=== PATIENT | female | born 1950 | race Asian ===

== ENCOUNTER → 2017-06-07 | Outpatient (CLI) | payer OTHER ==
[~2017-06-07] MED LIST: ACCUNEB SO1.25 MG/1 INH; ACCUPRIL40 MG PO; AMLODIPINE BESYL5 M1 PO; APIDRA; ASPIRIN325 PO; ATORVASTATIN CA40 MG PO; BENADRYL25 MG PO; BENZONATATE200 MG PO; CARVEDILOL12.5 MG PO; COREG PO; EPIPEN 2-P0.3 MG/0.3 IM; FUROSEMIDE 20 M20 M1 PO; FUROSEMIDE 40 M40 M1 PO; GLUCOPHAGE1000 MG PO; HYDROCHLOROTHIA25 M1 PO; HYDROCHLOROTHIA25 M2 PO; IMDUR 60 MG TAB60 M1 PO; LANTUS SC; LEVAQUIN 750 M750 MG PO; MUCINEX600 MG PO; NORVASC 5 MG TAB5 MG PO; NOVOLOG100 UNIT/1 SUBQ; OMEGA-31000 M1 PO; PEPCID40 MG PO; PLAVIX 75 MG TA75 MG PO; PRAVACHOL40 MG PO; PREDNISONE 10 M10 MG PO; PREDNISONE10 MG PO; PREDNISONE50 MG PO; RANEXA 500 MG500 M1 PO; RANEXA1000 MG PO; TOPROL XL100 MG PO
--- NOTE | 2017-06-07 14:23 | 2DMMODE ---
[place] [address] 2 D/M-MODE ECHOCARDIOGRAM Name: PRINCESS POOLE Room: [facility]#: [id number] Admission: 06/07/17 Attend Phys: Herbert Bourne, Discharge: Date of : 48 Date of Service: 06/07/17 1423 Report #: [id number] THIS REPORT FOR: //name// APPROVED REPORT Study performed: 06/07/2017 10:30:07 EXAM: Comprehensive 2D, Doppler, and color-flow Echocardiogram Patient Location: Out-Patient Status: routine BSA: 1.96 HR: 70 bpm BP: 140/70 mmHg Other Information Study Quality: Fair Indications Cardiomyopathy 2D Dimensions LVEF(%): 38.02 (>50%) IVSd: 14.91 (7-11mm) LVOT Diam: 20.06 (18-24mm) LVDd: 43.79 mm PWd: 9.83 (7-11mm) Ascending Ao: 27.17 (22-36mm) LVDs: 35.81 (25-40mm) Aortic Root: 22.99 mm Puri's LVEF: 38.02 % Volumes Left Atrial Volume (Systole) LA ESV Index: 22.00 mL/m2 Aortic Valve AoV Peak Beka.: 2.33 m/s AO Peak Gr.: 21.74 mmHg LVOT Max P.36 mmHg AO Mean Gr.: 12.42 mmHg LVOT Mean P.62 mmHg LVOT Max V: 0.92 m/s AO V2 VTI: 58.91 cm LVOT Mean V: 0.59 m/s JASON (VTI): 1.29 cm2 LVOT V1 VTI: 24.01 cm Mitral Valve E/A Ratio: 1.24 MV Decel. Time: 215.48 [place] [address] 2 D/M-MODE ECHOCARDIOGRAM Name: PRINCESS POOLE Room: [facility]#: [id number] Admission: 06/07/17 Attend Phys: Herbert Bourne, Discharge: Date of : 48 Date of Service: 06/07/17 1423 Report #: [id number] MV E Max Beka.: 1.25 m/s MV PHT: 62.49 ms MVA (PHT): 3.52 cm2 TDI E/Lateral E': 11.36 E/Medial E': 15.63 Medial E' Beka.: 0.08 m/s Lateral E' Beka.: 0.11 m/s Pulmonary Valve PV Peak Beka.: 0.97 m/s PV Peak Gr.: 3.78 mmHg Tricuspid Valve TR Peak Gr.: 27.62 mmHg RVSP: 32.62 mmHg Left Ventricle The left ventricle is normal size. moderate hypokinesis noted of distal septum and apex There is normal left ventricular wall thickness. Left ventricular systolic function is moderately decreased. LVEF is 35-40%. Right Ventricle The right ventricle is normal size. The right ventricular systolic function is normal. Atria The left atrium size is normal. The right atrium size is normal. Aortic Valve Aortic valve leaflets are mildly thickened. The aortic valve is not well visualized. Trace aortic regurgitation. Mild aortic stenosis. Mitral Valve The mitral valve is normal in structure. Mild to moderate mitral regurgitation. No evidence of mitral valve stenosis. Tricuspid Valve The tricuspid valve is normal in structure. Mild tricuspid regurgitation. The RVSP is __33 mmHg. Pulmonic Valve Pulmonic valve is not well visualized. There is no pulmonic [place] [address] 2 D/M-MODE ECHOCARDIOGRAM Name: PRINCESS POOLE Room: [facility]#: [id number] Admission: 06/07/17 Attend Phys: Herbert Bourne, Discharge: Date of : 48 Date of Service: 06/07/17 1423 Report #: [id number] Great Vessels The aortic root is normal in size. IVC is normal in size and collapses with >50% inspiration Pericardium There is no pericardial effusion. <Conclusion> LVEF is 35-40%. moderate hypokinesis noted of distal septum and apex Mild aortic stenosis. Mild to moderate mitral regurgitation. <ELECTRONICALLY SIGNED> By: Blane Ceja MD, FACC 06/07/17 1423 22 142 Blane Ceja MD, FACC /INF
== END ==
LOC: M.CRD 10:00
DX: I08.1 Rheumatic disorders of both mitral and tricuspid valves (principal); I25.5 Ischemic cardiomyopathy

== ENCOUNTER → 2017-12-08 | Outpatient (CLI) | payer OTHER ==
[2017-12-08 06:57] LABS: POTASSIUM 4.1 mmol/L (3.5-5.1)
== END ==
LOC: M.LAB 03:28
PROVIDERS: Anesthesiology
DX: Z01.812 Encounter for preprocedural laboratory examination (principal); E11.9 Type 2 diabetes mellitus without complications; I11.0 Hypertensive heart disease with heart failure; I50.9 Heart failure, unspecified; Z95.5 Presence of coronary angioplasty implant and graft

== ENCOUNTER → 2018-06-15 | Outpatient (CLI) | payer OTHER ==
--- NOTE | 2018-06-15 12:00 | 2DMMODE ---
[place] [address] 2 D/M-MODE ECHOCARDIOGRAM Name: PRINCESS POOLE Room: [facility]#: [id number] Admission: 06/15/18 Attend Phys: Herbert Bourne, Discharge: Date of : 48 Date of Service: 06/15/18 [facility] Report #: [id number] THIS REPORT FOR: //name// APPROVED REPORT Study performed: 06/15/2018 08:44:52 EXAM: Comprehensive 2D, Doppler, and color-flow Echocardiogram Patient Location: Out-Patient BSA: 1.96 HR: 75 bpm BP: 140/70 mmHg Other Information Study Quality: Good Indications Congestive Heart Failure Dyspnea 2D Dimensions IVSd: 12.22 (7-11mm) LVOT Diam: 20.16 (18-24mm) LVDd: 45.19 mm PWd: 8.22 (7-11mm) Ascending Ao: 25.37 (22-36mm) LVDs: 36.73 (25-40mm) Aortic Root: 20.24 mm Volumes Left Atrial Volume (Systole) LA ESV Index: 20.00 mL/m2 Aortic Valve AoV Peak Beka.: 2.12 m/s AO Peak Gr.: 17.94 mmHg LVOT Max P.04 mmHg AO Mean Gr.: 11.24 mmHg LVOT Mean P.69 mmHg LVOT Max V: 1.12 m/s AO V2 VTI: 54.28 cm LVOT Mean V: 0.76 m/s JASON (VTI): 1.74 cm2 LVOT V1 VTI: 29.53 cm Mitral Valve E/A Ratio: 0.93 MV Decel. Time: 261.06 ms MV E Max Beka.: 1.02 m/s MV PHT: 75[place]71 [place] [address] 2 D/M-MODE ECHOCARDIOGRAM Name: PRINCESS POOLE Room: [facility]#: [id number] Admission: 06/15/18 Attend Phys: Herbert Bourne, Discharge: Date of : 48 Date of Service: 06/15/18 [facility] Report #: [id number] MVA (PHT): 2.91 cm2 TDI E/Lateral E': 10.20 E/Medial E': 12.75 Medial E' Beka.: 0.08 m/s Lateral E' Beka.: 0.10 m/s Pulmonary Valve PV Peak Beka.: 1.00 m/s PV Peak Gr.: 4.02 mmHg Tricuspid Valve RAP Estimate: 5.00 mmHg TR Peak Gr.: 23.43 mmHg RVSP: 28.43 mmHg PA Pressure: 28.43 mmHg Left Ventricle The left ventricle is normal size. severe apical hypokinesis noted There is normal left ventricular wall thickness. Left ventricular systolic function is mild to moderately decreased. LVEF is 35-40%. The left ventricular diastolic function is normal. Right Ventricle The right ventricle is normal size. The right ventricular systolic function is normal. Atria The left atrium size is normal. The right atrium size is normal. Aortic Valve Aortic valve leaflets are mildly thickened. No aortic regurgitation is present. Mild aortic stenosis. Mitral Valve Mild mitral annular calcification. Mild mitral regurgitation. No evidence of mitral valve stenosis. Tricuspid Valve The tricuspid valve is normal in structure. Mild tricuspid regurgitation. Pulmonic Valve Pulmonic valve is not well visualized. There is no pulmonic valvular regurgitation[place] [address] 2 D/M-MODE ECHOCARDIOGRAM Name: PRINCESS POOLE Room: [facility]#: [id number] Admission: 06/15/18 Attend Phys: Herbert Bourne, Discharge: Date of : 48 Date of Service: 06/15/18 [facility] Report #: [id number] The aortic root is normal in size. IVC is normal in size and collapses >50% with inspiration. Pericardium There is no pericardial effusion. <Conclusion> severe apical hypokinesis noted LVEF is 35-40%. Mild aortic stenosis. Mild mitral regurgitation. <ELECTRONICALLY SIGNED> By: Blane Ceja MD, FACC 06/15/18 1200 1200 99 Blane Ceja MD, FACC /INF
== END ==
LOC: M.CRD 06-07 09:00
DX: I08.1 Rheumatic disorders of both mitral and tricuspid valves (principal); I25.5 Ischemic cardiomyopathy

== ENCOUNTER → 2020-01-22 | Outpatient (CLI) | payer OTHER ==
--- NOTE | 2020-01-22 13:15 | 2DMMODE ---
[place] [address] 2 D/M-MODE ECHOCARDIOGRAM Name: PRINCESS POOLE Room: [facility]#: [id number] Admission: 01/22/20 Attend Phys: Blane Ceja MD Discharge: Date of : 48 Date of Service: 01/22/20 1315 Report #: [id number] THIS REPORT FOR: cc: Daisha Conde Maggie M. DO Blick, David R. MD [facility] ~ APPROVED REPORT Study performed: 01/22/2020 09:48:29 EXAM: Comprehensive 2D, Doppler, and color-flow Echocardiogram Patient Location: Out-Patient BSA: 1.96 HR: 65 bpm BP: 140/70 mmHg Other Information Study Quality: Fair Indications Cardiomyopathy 2D Dimensions IVSd: 11.88 (7-11mm) LVOT Diam: 19.90 (18-24mm) LVDd: 46.35 mm PWd: 10.87 (7-11mm) Ascending Ao: 29.90 (22-36mm) LVDs: 24.31 (25-40mm) Aortic Root: 30.75 mm Volumes Left Atrial Volume (Systole) LA ESV Index: 28.20 mL/m2 Aortic Valve AoV Peak Beka.: 2.24 m/s AO Peak Gr.: 20.07 mmHg LVOT Max P.26 mmHg AO Mean Gr.: 11.77 mmHg LVOT Mean P.31 mmHg LVOT Max V: 0.75 m/s AO V2 VTI: 59.60 cm LVOT Mean V: 0.54 m/s JASON (VTI): 1.17 cm2 LVOT V1 VTI: 22.50 cm Mitral Valve E/A Ratio: 0.91 [place] [address] 2 D/M-MODE ECHOCARDIOGRAM Name: PRINCESS POOLE [id number] Admission: 01/22/20 Attend Phys: Blane Ceja MD Discharge: Date of : 48 Date of Service: 01/22/20 1315 Report #: [id number] MV Decel. Time: 277.64 ms MV E Max Beka.: 0.92 m/s MV PHT: 80.52 ms MVA (PHT): 2.73 cm2 TDI E/Lateral E': 11.50 E/Medial E': 15.33 Medial E' Beka.: 0.06 m/s Lateral E' Beka.: 0.08 m/s Pulmonary Valve PV Peak Beka.: 0.99 m/s PV Peak Gr.: 3.89 mmHg Tricuspid Valve RAP Estimate: 5.00 mmHg TR Peak Gr.: 24.62 mmHg RVSP: 29.62 mmHg PA Pressure: 29.62 mmHg Left Ventricle The left ventricle is normal size. severe hypokinesis noted of the apex There is normal left ventricular wall thickness. Left ventricular systolic function is mildly decreased. LVEF is 45-50%. The left ventricular diastolic function is normal. Right Ventricle The right ventricle is normal size. The right ventricular systolic function is normal. Atria The left atrium size is normal. The right atrium size is normal. Aortic Valve Aortic valve is calcified. The aortic valve is not well visualized. No aortic regurgitation is present. Mild aortic stenosis. Mitral Valve The mitral valve is normal in structure. Mild mitral regurgitation. No evidence of mitral valve stenosis. Tricuspid Valve The tricuspid valve is normal in structure. Mild tricuspid regurgitation. Pulmonic Valve Pulmonic valve is not well visualized. There is [place] [address] 2 D/M-MODE ECHOCARDIOGRAM Name: PRINCESS POOLE Room: [facility]#: [id number] Admission: 01/22/20 Attend Phys: Blane Ceja MD Discharge: Date of : 48 Date of Service: 01/22/20 1315 Report #: [id number] regurgitation. Great Vessels The aortic root is normal in size. IVC is normal in size and collapses >50% with inspiration. Pericardium There is no pericardial effusion. <Conclusion> severe hypokinesis noted of the apex LVEF is 45-50%. Mild aortic stenosis. Mild mitral regurgitation. <ELECTRONICALLY SIGNED> By: Blane Ceja MD, FACC 01/22/201314 14 14 Blane Ceja MD, FACC /INF
== END ==
LOC: M.CRD 09:45
PROVIDERS: ATTEND Internal Medicine Cardiovascular Disease
DX: I08.3 Combined rheumatic disorders of mitral, aortic and tricuspid valves (principal)

== ENCOUNTER 2020-07-31 07:29 | Inpatient (IN) | payer OTHER ==
[~2020-07-31] VITALS: Ht 157.5 cm; Wt 101.6 kg
[2020-07-31] VITALS (41 sets, daily range): BP systolic 66–183; BP diastolic 32–84
[~2020-07-31 07:29] MED LIST changes: +COENZYME Q10100 M2 PO; +COZAAR 25 MG TA25 M1 PO; +LASIX 40 MG TAB40 MG PO; +NITROSTAT0.4 M1 SUBLING; +OMEGA-3 FISH1200 MG PO; +REFRESH PLUS1 EACH EA. EYE
[2020-07-31 08:04] LABS: HEMATOCRIT 38.2 % (37.0-47.0); HEMOGLOBIN 12.4 gm/dL (12.0-15.0); MCH 32.2 pg (26.0-34.0); MCHC 32.4 g/dL (28.0-37.0); MCV 99.4 fL (80.0-100.0); MPV 8.3 fl. (7.2-11.1); RBC 3.85 mil/uL (4.20-5.00); RDW-CV 13.6 % (10.5-14.5); WBC 6.9 thou/uL (4.0-11.0)
[2020-07-31 08:16] LABS: PROTIME 10.3 Seconds (9.20-11.50)
[2020-07-31 08:20] LABS: ALBUMIN 3.8 g/dL (3.4-5.0); ALKALINE PHOSPHATASE 43 U/L (46-116); ANION GAP 10 mmol/L (7-16); BUN 21 mg/dL (7-18); CALCIUM 8.9 mg/dL (8.5-10.1); CHLORIDE 103 mmol/L (98-107); CHOLESTEROL 117 mg/dL (<200); CO2 29 mmol/L (21-32); CREATININE 1.5 mg/dL (0.6-1.3); GLUCOSE 181 mg/dL (70-99); HDL CHOLESTEROL 59 mg/dL (>40); LDL CHOLESTEROL 42 mg/dL (<100); POTASSIUM 4.1 mmol/L (3.5-5.1); SERUM ASSESSMENT Clear; SGOT 14 U/L (15-37); SGPT 22 U/L (30-65); SODIUM 142 mmol/L (136-145); TOTAL BILIRUBIN 0.4 mg/dL (<0.1-1.0); TOTAL PROTEIN 8.1 g/dL (6.4-8.2); TRIGLYCERIDE 81 mg/dL (<150); VLDL 16 mg/dL (<40)
--- NOTE | 2020-07-31 08:57 | EKG ---
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
--- NOTE | 2020-07-31 11:18 | EKG ---
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1950 Requested By: Blane Ceja Order Number: [id number] Reading MD: Blane Ceja Measurements Intervals [place] Rate: 90 P: 71 WA: 193 QRS: -7 QRSD: 98 T: -2 QT: 388 QTc: 475 Interpretive Statements Sinus rhythm Low voltage, extremity leads Consider anterior infarct Borderline ST depression, diffuse leads Minimal ST elevation, lateral leads Compared to ECG 07/31/2020 08:14:12 Myocardial infarct finding now present ST (T wave) deviation now present Electronically Signed On 07-31-2020 11:18:02 CDT by Blane Ceja [email or web address] <ELECTRONICALLY SIGNED> By: Blane Ceja MD, FAC 07/31/20 1118 0958 0958 Blane Ceja MD, [facility] /EPI
[2020-07-31 11:38] LABS: HEMATOCRIT 39.4 % (37.0-47.0); HEMOGLOBIN 12.6 gm/dL (12.0-15.0); MCV 99.8 fL (80.0-100.0); MPV 8.9 fl. (7.2-11.1); NUCLEATED RBCS 0 /100WBC; PLATELET COUNT* 244 thou/uL (150-400); RBC 3.94 mil/uL (4.20-5.00); RDW-CV 14.1 % (10.5-14.5); WBC 13.7 thou/uL (4.0-11.0)
[2020-07-31 11:51] LABS: URINE BILIRUBIN NEGATIVE (Negative); URINE BLOOD TRACE (Negative); URINE CLARITY CLEAR; URINE COLOR YELLOW; URINE GLUCOSE-RANDOM 2+ (Negative); URINE KETONES NEGATIVE (Negative); URINE LEUKOCYTES NEGATIVE (Negative); URINE NITRITE NEGATIVE (Negative); URINE PROTEIN 2+ (Negative); URINE SPECIFIC GRAVITY >= 1.030 (1.005-1.030); URINE UROBILINOGEN 0.2 E.U./dl (0.2-1.0)
[2020-07-31 11:53] LABS: APTT 22.2 Seconds (25.0-31.3); PROTIME 10.8 Seconds (9.20-11.50)
[2020-07-31 11:55] LABS: SQUAMOUS 0-3 Few /LPF (0-3)
[2020-07-31 11:56] LABS: BACTERIA 1-9 Few /HPF (None Seen); MUCUS 0-3 Light strn/LPF (None Seen); URINE RBC 0-2 Rare /HPF (0-2); URINE WBC 0-5 Rare /HPF (0-5)
[2020-07-31 11:56] LABS: ALBUMIN 3.1 g/dL (3.4-5.0); CREATININE 1.4 mg/dL (0.6-1.3); MAGNESIUM 1.9 mg/dL (1.8-2.4); POTASSIUM 4.5 mmol/L (3.5-5.1); TOTAL BILIRUBIN 0.4 mg/dL (<0.1-1.0); TOTAL PROTEIN 6.7 g/dL (6.4-8.2)
[2020-07-31 11:57] LABS: CRYSTALS None Seen /LPF (None Seen); FINE GRANULAR CASTS 0-3 Few /LPF (None Seen); HYALINE CASTS 4-10 Moderate /LPF (None Seen)
[2020-07-31 12:11] LABS: ABSOLUTE LYMPHOCYTES 0.8 thou/uL (0.8-5.3); ABSOLUTE MONOCYTES 0.7 thou/uL (0.0-1.2); ABSOLUTE NEUTROPHILS 12.2 thou/uL (1.6-8.1); PLATELET ESTIMATE ADEQUATE
[2020-07-31 12:21] LABS: BE -4.8 mmol/L (-2 to +3); PO2 70.7 mmHg (75.0-100.0)
[2020-07-31 12:23] LABS: PCO2 55.3 mmHg (35.0-45.0)
--- NOTE | 2020-07-31 14:33 | 2DMMODE ---
[place] [address] 2 D/M-MODE ECHOCARDIOGRAM Name: PRINCESS POOLE Room: [address] ADM IN .Gloria.#: [id number] Admission: 07/31/20 Attend Phys: Yani Lopes Discharge: Date of : 48 Date of Service: 07/31/20 1433 Report #: [id number] THIS REPORT FOR: cc: Daisha Conde Maggie M. DO Blick,Blane Keith MD [facility] ~ APPROVED REPORT Study performed: 07/31/2020 13:40:26 EXAM: Comprehensive 2D, Doppler, and color-flow Echocardiogram Patient Location: In-Patient Room #: 004 Status: routine BSA: 1.96 HR: 57 bpm BP: 116/64 mmHg Rhythm: NSR Other Information Study Quality: Good Indications Dyspnea 2D Dimensions IVSd: 9.79 (7-11mm) LVOT Diam: 17.56 (18-24mm) LVDd: 49.25 mm PWd: 10.48 (7-11mm) Ascending Ao: 28.77 (22-36mm) LVDs: 38.64 (25-40mm) Aortic Root: 27.53 mm Volumes Left Atrial Volume (Systole) LA ESV Index: 23.10 mL/m2 Aortic Valve AoV Peak Beka.: 2.17 m/s AO Peak Gr.: 18.77 mmHg LVOT Max P.00 mmHg AO Mean Gr.: 11.76 mmHg LVOT Mean P.03 mmHg LVOT Max V: 1.00 m/s AO V2 VTI: 56.67 cm LVOT Mean V: 0.65 m/s JASON (VTI): 1.11 cm2 LVOT V1 VTI: 26.05 [place] [address] 2 D/M-MODE ECHOCARDIOGRAM Name: PRINCESS POOLE Room: [address]#: [id number] Admission: 07/31/20 Attend Phys: Yani Lopes Discharge: Date of : 48 Date of Service: 07/31/20 1433 Report #: [id number] Mitral Valve E/A Ratio: 1.17 MV Decel. Time: 138.82 ms MV E Max Beka.: 1.23 m/s MV PHT: 40.26 ms MVA (PHT): 5.46 cm2 TDI E/Lateral E': 17.57 E/Medial E': 13.67 Medial E' Beka.: 0.09 m/s Lateral E' Beka.: 0.07 m/s Left Ventricle The left ventricle is normal size. apical akinesis There is normal left ventricular wall thickness. Left ventricular systolic function is mild to moderately decreased. LVEF is 35-40%. Right Ventricle The right ventricle is normal size. The right ventricular systolic function is normal. Atria The left atrium size is normal. The right atrium size is normal. Aortic Valve Aortic valve is calcified. No aortic regurgitation is present. Mild aortic stenosis. Mitral Valve The mitral valve is normal in structure. Moderate mitral regurgitation. No evidence of mitral valve stenosis. Tricuspid Valve The tricuspid valve is normal in structure. Unable to assess PA pressure. There is trace tricuspid valve regurgitation noted. Pulmonic Valve Pulmonic valve is not well visualized. There is no pulmonic valvular regurgitation. Great Vessels The aortic root is normal in size. IVC is normal in size and collapses >50% [place] [address] 2 D/M-MODE ECHOCARDIOGRAM Name: PRINCESS POOLE Room: [address] IN .Gloria.#: [id number] Admission: 07/31/20 Attend Phys: Yani Lopes Discharge: Date of : 48 Date of Service: 07/31/20 143 Report #: [id number] Pericardium There is no pericardial effusion. <Conclusion> LVEF is 35-40%. Mild aortic stenosis. Moderate mitral regurgitation. <ELECTRONICALLY SIGNED> By: Blane Ceja MD, [facility] 07/31/201432 143 Blane Ceja MD, FACC /INF
[2020-07-31 15:46] LABS: BE -0.7 mmol/L (-2 to +3); PO2 105.4 mmHg (75.0-100.0); pH 7.452 (7.340-7.450)
[2020-07-31 17:07] LABS: CALCIUM 8.3 mg/dL (8.5-10.1); CREATININE 1.3 mg/dL (0.6-1.3); MAGNESIUM 2.5 mg/dL (1.8-2.4); POTASSIUM 4.4 mmol/L (3.5-5.1)
--- NOTE | 2020-07-31 18:02 | CON ---
[facility] [address] [place] [address] CONSULTATION Name: PRINCESS POOLE Room: [address] ADM IN M.R.#: [id number] Admission: 07/31/20 Attend Phys: Luisa Rapp Discharge: Date of : 48 Report #: [id number] THIS REPORT FOR: cc: Daisha Conde Maggie M. DO Pervez, Adeel MD ~ DATE OF SERVICE: 07/31/2020 REQUESTING PHYSICIAN: Dr. Lopes. INDICATION FOR CONSULTATION: Acute hypoxemic respiratory failure. HISTORY OF PRESENT ILLNESS: A 69-year-old female. Her past medical history includes a history of coronary artery disease. She has had previous cardiac stents. There is an echo performed in 01/2020, which did show reduction in left ventricular ejection fraction mildly to 45-50% without elevation in right heart pressures, right heart pressures at that time were around 30. The patient does have mild aortic stenosis. She has not been previously diagnosed with a respiratory disease from her body habitus. It does appear likely to me that she does have previously undiagnosed obstructive sleep apnea. There is no known history of smoking. 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 The patient was here for having a cardiac catheterization. She had had recent shortness of breath on exertion as well as chest tightness. The patient upon being lying down on the table in the laborer beam house went into respiratory distress, requiring emergent endotracheal intubation. The patient is reported to have briefly received CPR as well and at least received 1 amp of epinephrine. It is, however, not fully apparent as to whether the patient in fact had a cardiac arrest or not. It is possible to feel that she was briefly in PEA for about a minute or so. The patient currently is on the ventilator and we have her on 100% FiO2. I have just increased the PEEP to 10. We are barely oxygenating at around 90% or 91%. She is on propofol infusion at 50. Chest x-ray is consistent with acute pulmonary edema. COVID-19 can give this picture; however, that appears to be much less likely. Most likely, the patient has acute pulmonary edema. There is also considerable gastric dilatation on the chest x-ray, this certainly could be due to bag mask ventilation. The patient does have an A-line in place. The patient also does have a PICC line in place now. She still appears to be inadequately sedated. There is no swelling of lower extremities. She does have some distention of the abdomen on exam. The patient is unable to provide a further [place] [address] CONSULTATION Name: PRINCESS POOLE Room: [address] IN M.R.#: [id number] Admission: 07/31/20 Attend Phys: Luisa Rapp Discharge: Date of : 48 Report #: [id number] PAST MEDICAL HISTORY: Coronary artery disease, previous cardiac stents, obesity. I suspect she has previously undiagnosed obstructive sleep apnea. There is no other known previous respiratory disease. Last echo as above shows mild reduction in left ventricular ejection fraction to 45-50% with mild aortic stenosis. Also, history of coronary artery disease, diabetes, hyperlipidemia, macular degeneration, hypertension. SOCIAL HISTORY: There is no known history of smoking, ethanol abuse or drug abuse. CURRENT MEDICATIONS: List in [employer] reviewed. HOME MEDICATIONS: List in [employer] reviewed. ALLERGIES: Vytorin, Statins, Possible adverse reactiom to Metoprolol FAMILY HISTORY: There is no pertinent family history known at this time. PHYSICAL EXAMINATION: GENERAL: She is on propofol infusion at 50. VITAL SIGNS: Has a pulse of 90 and a blood pressure highly variable. When I last checked, it was 160/90. She has a set rate of 15. She is breathing in the high teens, but she is saturating only 91-92%. We have her on a tidal volume 500, AC rate set at 15, PEEP is 10, 100% FiO2, peak airway pressures are in the high 30s. Body mass index is 39. HEENT: Head is normocephalic and atraumatic. Pupils are bilaterally dilated, but reactive. Endotracheal tube is in the trachea somewhat high. There is an OG in place as well. NECK: Does not show raised JVP, asymmetry, mass or lymph nodes. CHEST: Symmetrical expansion on inspection and palpation. On auscultation, breath sounds are bilaterally equal. I do not hear any added sounds. HEART: Regular. There is no murmur. ABDOMEN: Abdomen is significantly distended, but nontender. EXTREMITIES: Lower extremities do not show edema or calf tenderness. SKIN: Dry and intact. NEUROLOGICAL: She did move all extremities to pain. LABORATORY DATA: The patient's chest x-ray reviewed. There are findings consistent with acute pulmonary edema, atypical pneumonia such as with COVID-19 can give this picture. ARDS can also give this picture. However, at first glance, this is likely pulmonary edema, cardiogenic. There is significant gastric dilatation as above. The patient's lab work performed before, she had a cardiac catheterization is in [facility]. This was reviewed. There is mild [facility] [address] [place] [address] CONSULTATION Name: PRINCESS POOLE Room: [address] IN .R.#: [id number] Admission: 07/31/20 Attend Phys: Luisa Rapp Discharge: Date of : 48 Report #: [id number] elevation in creatinine before she was taken for cardiac catheterization which she did not have is reviewed. Creatinine was mildly elevated to 1.5. ASSESSMENT AND PLAN: 1. Acute hypoxemic respiratory failure. Etiology remains to be fully defined. The most likely etiology of the patient's chest x-ray findings is acute pulmonary edema. Why the patient has developed acute pulmonary edema, remains to be defined at this time. The patient's tidal volume was high for her height; however, considering significant hypoxemia, for now, I did not decrease tidal volume. Although, I will consider this later, went ahead and increased the PEEP, it is at 10, will sedate her more. We will continue with propofol as currently ordered. I will add fentanyl drip. We will also go ahead and add p.r.n. Versed and then follow response. We will obtain an arterial blood gas and then see where we stand. Endotracheal tube was in adequate position, but I would adjust it a bit and advanced it about 1.5 cm. I will then reassess and see where we stand. Multiple labs are also ordered at this time. 2. Acute pulmonary edema/pulmonary infiltrates. I would go ahead and give her 60 mg of Lasix IV now. Awaiting labs. I will consider giving her more Lasix subsequently, the most likely etiology of the finding of the patient's chest x-ray is acute pulmonary edema. COVID-19 can lead to this picture; however, it is much less likely. Regardless, I will cover the possibility and do a COVID-19 PCR. COVID-19 antigen is negative. Troponins are pending. We will also await an echocardiogram. I will do a sputum culture. We will do a nasal swab for methicillin-resistant Staphylococcus aureus. Blood cultures have already been sent. We will try to get more information and then decide as to whether there is an indication to give her antibiotics considering severe hypoxemia. If there is doubt, then I will be inclined to go ahead and give her antibiotics. 3. Evaluation for thromboembolic phenomena. Echocardiogram as above. We will also do venous Dopplers. D-dimer is pending at this time. We will need to see her creatinine also. Considering severe hypoxemia, the patient is too unstable to transport to CTA at this time. We will see how she does and then decide as to whether we can transfer her to CT. We will also touch base with the Cardiology Service and assess as to whether we should empirically anticoagulate her, pending further evaluation. 4. Possible component of bronchospasm. I ordered DuoNeb. I ordered one dose of Solu-Medrol. We will follow and assess as to whether more steroids are indicated. 5. Suspected obstructive sleep apnea evaluation is deferred at this time. 6. Mild renal insufficiency. Note that there is baseline mild elevation in creatinine as above. 7. History of coronary artery disease/aortic stenosis/mild reduction in left ventricular ejection fraction at baseline. 8. Gastrointestinal prophylaxis. We will go ahead and give her Protonix. 9. History of diabetes. Would need insulin. [address] [address] CONSULTATION Name: PRINCESS POOLE Room: [address] IN M.R.#: [id number] Admission: 07/31/20 Attend Phys: Luisa Rapp Discharge: Date of : 48 Report #: [id number] The patient is critically ill at this time. Total time spent providing critical care to this patient today exceeds 50 minutes. <ELECTRONICALLY SIGNED> By: Be Downey MD 07/31/20 1802 1134 [id number] Downey MD /nt
[2020-08-01] VITALS (67 sets, daily range): BP systolic 87–136; BP diastolic 38–69
[2020-08-01 05:34] LABS: ABSOLUTE LYMPHOCYTES 0.8 thou/uL (0.8-5.3); ABSOLUTE MONOCYTES 0.7 thou/uL (0.0-1.2); ABSOLUTE NEUTROPHILS 10.6 thou/uL (1.6-8.1); BASOPHILS 0.1 %; HEMATOCRIT 38.1 % (37.0-47.0); HEMOGLOBIN 12.4 gm/dL (12.0-15.0); LYMPHOCYTES 6.5 %; MCHC 32.5 g/dL (28.0-37.0); MCV 98.4 fL (80.0-100.0); MONOCYTES 6.1 %; MPV 8.9 fl. (7.2-11.1); NUCLEATED RBCS 0 /100WBC; PLATELET COUNT* 261 thou/uL (150-400); POLYS 87.3 %; RBC 3.88 mil/uL (4.20-5.00); WBC 12.2 thou/uL (4.0-11.0)
[2020-08-01 05:53] LABS: ALBUMIN 3.2 g/dL (3.4-5.0); CALCIUM 8.1 mg/dL (8.5-10.1); CREATININE 1.4 mg/dL (0.6-1.3); MAGNESIUM 2.2 mg/dL (1.8-2.4); POTASSIUM 3.8 mmol/L (3.5-5.1); TOTAL BILIRUBIN 0.3 mg/dL (<0.1-1.0); TOTAL PROTEIN 7.2 g/dL (6.4-8.2)
[2020-08-01 05:54] LABS: TROPONIN-I LEVEL 2.57 ng/mL (<0.06)
[2020-08-01 05:59] LABS: PHOSPHORUS* 4.4 mg/dL (2.5-4.9)
[2020-08-01 08:26] LABS: BE -1.1 mmol/L (-2 to +3); PCO2 39.1 mmHg (35.0-45.0); pH 7.397 (7.340-7.450)
[2020-08-01 08:37] LABS: PO2 187.2 mmHg (75.0-100.0)
--- NOTE | 2020-08-01 10:32 | EKG ---
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: : 1950 Requested By: Blane Ceja Order Number: [id number] Reading MD: Blane Ceja Measurements Intervals [place] Rate: 64 P: 42 MA: 200 QRS: 33 QRSD: 112 T: 85 QT: 435 QTc: 449 Interpretive Statements Sinus rhythm Borderline intraventricular conduction delay Low voltage, extremity leads Nonspecific T abnormalities, lateral leads Baseline wander in lead(s) I,III,aVL,aVF Compared to ECG 07/31/2020 09:58:56 T-wave abnormality now present Myocardial infarct finding no longer present ST (T wave) deviation no longer present Electronically Signed On 08-01-2020 10:31:56 CDT by Blane Ceja [email or web address] <ELECTRONICALLY SIGNED> By: Blane Ceja MD, [facility] 08/01/20 1031 1013 1013 Blane Ceja MD, [facility] /EPI
[2020-08-01 17:21] LABS: CALCIUM 7.3 mg/dL (8.5-10.1); CREATININE 1.2 mg/dL (0.6-1.3); MAGNESIUM 2.2 mg/dL (1.8-2.4); POTASSIUM 4.1 mmol/L (3.5-5.1)
[2020-08-02] VITALS (28 sets, daily range): BP systolic 88–149; BP diastolic 33–82
[2020-08-02 04:40] LABS: ABSOLUTE BASOPHILS 0.1 thou/uL (0.0-0.2); ABSOLUTE LYMPHOCYTES 2.6 thou/uL (0.8-5.3); ABSOLUTE NEUTROPHILS 8.4 thou/uL (1.6-8.1); BASOPHILS 0.7 %; EOSINOPHILS 0.4 %; HEMATOCRIT 34.5 % (37.0-47.0); HEMOGLOBIN 11.3 gm/dL (12.0-15.0); LYMPHOCYTES 21.6 %; MCH 32.1 pg (26.0-34.0); MCHC 32.7 g/dL (28.0-37.0); MCV 98.1 fL (80.0-100.0); MPV 8.9 fl. (7.2-11.1); NUCLEATED RBCS 0 /100WBC; PLATELET COUNT* 226 thou/uL (150-400); POLYS 69.3 %; RBC 3.51 mil/uL (4.20-5.00); WBC 12.1 thou/uL (4.0-11.0)
[2020-08-02 05:01] LABS: ALBUMIN 2.8 g/dL (3.4-5.0); CALCIUM 7.6 mg/dL (8.5-10.1); MAGNESIUM 2.2 mg/dL (1.8-2.4); POTASSIUM 3.7 mmol/L (3.5-5.1); TOTAL BILIRUBIN 0.4 mg/dL (<0.1-1.0); TOTAL PROTEIN 6.7 g/dL (6.4-8.2)
[2020-08-02 05:15] LABS: PHOSPHORUS* 2.1 mg/dL (2.5-4.9)
[2020-08-02 10:03] LABS: BE 0.2 mmol/L (-2 to +3); PCO2 39.6 mmHg (35.0-45.0); PO2 91.2 mmHg (75.0-100.0); pH 7.413 (7.340-7.450)
[2020-08-02 12:31] LABS: BE 2.2 mmol/L (-2 to +3); PCO2 40.1 mmHg (35.0-45.0); PO2 63.6 mmHg (75.0-100.0); pH 7.438 (7.340-7.450)
--- NOTE | 2020-08-02 15:21 | EKG ---
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 : 1950 Requested By: Blane Ceja Order Number: [id number] Lashae MD: Blane Ceja Measurements Intervals [place] Rate: 66 P: 10 PA: 136 QRS: -3 QRSD: 125 T: 87 QT: 439 QTc: 460 Interpretive Statements Sinus rhythm Nonspecific intraventricular conduction delay low voltage late transition Baseline wander in lead(s) V4 Compared to ECG 08/01/2020 10:13:38 no change Electronically Signed On 08-02-2020 15:21:21 CDT by Blane Ceja [email or web address] <ELECTRONICALLY SIGNED> By: Blane Ceja MD, [facility] 08/02/20 1521 1204 1204 Blane Ceaj MD, [facility] /EPI
--- NOTE | 2020-08-02 15:56 | CARD ---
[address] [address] CARDIAC CATH REPORT Name: PRINCESS POOLE Room: [address] ADM IN M.R.#: [id number] Admission: 07/31/20 Attend Phys: Luisa Rapp Discharge: Date of : 48 Report #: [id number] THIS REPORT FOR: cc: Daisha Conde Maggie M. DO Blick, David R. MD [facility] ~ APPROVED REPORT Study performed: 08/02/2020 09:12:03 Patient Details Patient Status: In-Patient Room #: ICU4 The patient is a 69 year-old female Event Personnel Chicho Resendez RTR Monitor, Sharon Fontaine RTR Scrub, Betty Chung RN RN, Blane Ceja Department Director Procedures Performed Left Heart Cath w/or w/o Coronaries [id number] [facility] Place w/wo Plasty Single LAD [id number] Hemostasis w/ Angioseal Indication Non-STEMI , Dyspnea Risk Factors Arterial Hypertension, Hypercholesterolemia, Coronary Artery Disease, Diabetes Previous Procedures/Diagnoses Previous PCI Admission/Lab Medications/Medications given during procedure Heparin Unfract., Lidocaine Subcut 20 ml, Heparin IV 6000 units Procedure Narrative The patient was brought electively to the Cardiac Catheterization Laboratory and was prepped and draped in a sterile manner. The right femoral was infiltrated with 2% Lidocaine subcutaneous anesthesia. A Bartley 6 FR sheath was inserted into the right femoral artery. Coronary angiography was performed using coronary diagnostic catheters. The right coronary system was accessed and visualized with a Diagnostic JR4 6Fr catheter. The [place] [address] CARDIAC CATH REPORT Name: POOLEPRINCESS Room: [address]#: [id number] Admission: 07/31/20 Attend Phys: Luisa Rapp Discharge: Date of : 48 Report #: [id number] and visualized with a Diagnostic JL4 6Fr catheter. The left ventricle was accessed and visualized with a Diagnostic Pigtail 6Fr catheter. Left ventricular/Aortic Valve gradient assessed via catheter pullback. Left ventriculogram was performed in [place] projection. Closure device was deployed with a 6 Fr Angioseal. The patient tolerated the procedure well and there were no complications associated with the procedure. There was no hematoma. Patient was intubated and brought to the catheterization laboratory on a ventilator and on IV levophed through a PIC line. Intraoperative Conscious Sedation Sedation start time: 948 Case end Time: 1028 Fluoro Time: 5.6 minutes Dose: DAP 43458 cGycm2 1630.32 mGy Contrast Type and Amount: Omnipaque 190 ml Coronary Angiography The patient's coronary anatomy is co- dominant. Diagnostic Cath Left Main 0% stenosis LAD 95% mid stenosis. The distal LAD was subtotally occluded and was noted to be a small diameter vessel with slow antegrade flow as well as retrograde flow from collaterals from the RCA Circumflex 80% ostail stenosis. Stents in the mid circumflex after the frist marginal artery were chronically occluded. The distal circumflex had bridging collaterals as well as retrograde collateral from the RCA Right Coronary Stent in the proximal RCA had 50% restenosis, and the stent in the mid RCA had 60% restenosis Left Ventriculography The left ventricular ejection fraction is estimated to be 20-25%. Left ventricular wall motion abnormalities are present. There is 1+ mitral insufficiency. Akinesis noted of the inferior wall as well as the apex. Hemodynamics The aortic pressure is 103/40 mmHg with a mean of 64 mmHg. The left ventricular pressure is 125/10 mmHg with a mean of mmHg. The left ventricular end diastolic pressure is 25 mmHg. Pullback from the left ventricle to the aorta revealed a 20 mm gradient [place] [address] CARDIAC CATH REPORT Name: PRINCESS POOLE Room: [address]#: [id number] Admission: 07/31/20 Attend Phys: Luisa Rapp Discharge: Date of : 48 Report #: [id number] PCI Technique Lesion Anticoagulation was achieved with Heparin. Patient was preloaded with Plavix. Percutaneous coronary intervention was performed on the mid left anterior descending artery segment. The lesion stenosis prior to intervention was 95% with ORTIZ 3 flow. A 6FR XB LAD 3.0 100CM Guide Catheter was used to engage the Left ostium. A IG: BMW 190cm Interventional Guidewire was used to cross the lesion. BALLOON DILATION A Balloon catheter Euphora SC 2.0x10mm was inserted and inflated up to 10.00atm for 18seconds. Repeat angiography revealed the following post-dilatation results: 50% stenosis. Additional Inflation: 14.00atm for 16seconds. Additional Inflation: 20.00atm for 16seconds. STENT DEPLOYMENT A drug-eluting stent [place] RX Stent [id number] was inserted and inflated up to 12.00atm for 14seconds. Repeat angiography revealed the following post-stent deployment results: 0% stenosis. Additional Inflation: 12.00atm for 12seconds. Additional Inflation: 19.00atm for 12seconds. Final angiography reveals 0 % stenosis with ORTIZ 3 flow. Conclusion 1. 95% stenosis of the mid LAD. The distal LAD had a small diameter and was subtotally occluded with both slow antegrade flow as well as retrograde flow from collaterals from the RCA 2. Stents in the mid circumflex artery appeared chronically occluded with slow filling by bridging collaterals as well as regrograde filling by collaterals from the RCA. 3. Stent in the proximal RCA had a 50% restenosis and the mid RCA stent had a 60% restenosis. 4. LVEF 20-25% 5. successful placement of a drug eluting stent in the mid LAD. 6. Mild aortic stenosis. Recommendations Cardiac Rehabilitation Referral Aggressive Medical Therapy <ELECTRONICALLY SIGNED> By: Blane Ceja MD, [facility] 08/02/20 1556 1556 1556Daviluisa Ceja MD, FAC /INF
[2020-08-02 17:18] LABS: CALCIUM 7.1 mg/dL (8.5-10.1); CREATININE 0.9 mg/dL (0.6-1.3); MAGNESIUM 2.2 mg/dL (1.8-2.4); POTASSIUM 4.2 mmol/L (3.5-5.1)
[2020-08-03] VITALS (50 sets, daily range): BP systolic 105–157; BP diastolic 39–61
[2020-08-03 05:22] LABS: ABSOLUTE EOSINOPHILS 0.1 thou/uL (0.0-0.7); ABSOLUTE LYMPHOCYTES 1.2 thou/uL (0.8-5.3); ABSOLUTE MONOCYTES 0.6 thou/uL (0.0-1.2); ABSOLUTE NEUTROPHILS 6.7 thou/uL (1.6-8.1); BASOPHILS 0.5 %; EOSINOPHILS 1.5 %; HEMOGLOBIN 11.4 gm/dL (12.0-15.0); MCH 32.3 pg (26.0-34.0); MCHC 32.6 g/dL (28.0-37.0); MCV 98.9 fL (80.0-100.0); MONOCYTES 6.6 %; MPV 8.7 fl. (7.2-11.1); NUCLEATED RBCS 0 /100WBC; PLATELET COUNT* 174 thou/uL (150-400); POLYS 77.4 %; RBC 3.53 mil/uL (4.20-5.00); RDW-CV 13.9 % (10.5-14.5); WBC 8.7 thou/uL (4.0-11.0)
[2020-08-03 05:55] LABS: ALBUMIN 2.6 g/dL (3.4-5.0); CALCIUM 8.2 mg/dL (8.5-10.1); CREATININE 1.2 mg/dL (0.6-1.3); MAGNESIUM 2.4 mg/dL (1.8-2.4); PHOSPHORUS* 3.5 mg/dL (2.5-4.9); TOTAL BILIRUBIN 0.7 mg/dL (<0.1-1.0)
[2020-08-03 05:57] LABS: TROPONIN-I LEVEL 1.91 ng/mL (<0.06)
[2020-08-04] VITALS (26 sets, daily range): BP systolic 100–155; BP diastolic 35–62
[2020-08-04 05:04] LABS: HEMOGLOBIN 11.5 gm/dL (12.0-15.0); MCH 32.5 pg (26.0-34.0); MCHC 32.9 g/dL (28.0-37.0); MCV 98.9 fL (80.0-100.0); RBC 3.53 mil/uL (4.20-5.00); RDW-CV 13.8 % (10.5-14.5); WBC 7.7 thou/uL (4.0-11.0)
[2020-08-04 05:24] LABS: ALBUMIN 2.4 g/dL (3.4-5.0); CALCIUM 7.9 mg/dL (8.5-10.1); MAGNESIUM 2.4 mg/dL (1.8-2.4); POTASSIUM 3.8 mmol/L (3.5-5.1); TOTAL BILIRUBIN 0.5 mg/dL (<0.1-1.0); TOTAL PROTEIN 7.1 g/dL (6.4-8.2)
[2020-08-04 11:39] LABS: BE 0.2 mmol/L (-2 to +3); PO2 68.8 mmHg (75.0-100.0); pH 7.395 (7.340-7.450)
[2020-08-04 11:47] LABS: URINE BILIRUBIN NEGATIVE (Negative); URINE BLOOD TRACE (Negative); URINE CLARITY CLEAR; URINE COLOR YELLOW; URINE GLUCOSE-RANDOM 3+ (Negative); URINE KETONES NEGATIVE (Negative); URINE LEUKOCYTES-REFLEX TRACE (Negative); URINE NITRITE-REFLEX NEGATIVE (Negative); URINE PROTEIN NEGATIVE (Negative); URINE UROBILINOGEN 0.2 E.U./dl (0.2-1.0)
[2020-08-04 11:57] LABS: MUCUS None Seen strn/LPF (None Seen); SQUAMOUS NONE SEEN /LPF (0-3)
[2020-08-04 11:58] LABS: BACTERIA-REFLEX None Seen /HPF (None Seen); CASTS None Seen /LPF (None Seen); CRYSTALS None Seen /LPF (None Seen); URINE RBC 0-2 Rare /HPF (0-2); URINE WBC-REFLEX 0-5 Rare /HPF (0-5)
[2020-08-05] VITALS (26 sets, daily range): BP systolic 96–136; BP diastolic 38–58
[2020-08-05 04:38] LABS: HEMATOCRIT 33.9 % (37.0-47.0); HEMOGLOBIN 11.3 gm/dL (12.0-15.0); MCHC 33.3 g/dL (28.0-37.0); MPV 9.1 fl. (7.2-11.1); RBC 3.43 mil/uL (4.20-5.00); RDW-CV 13.6 % (10.5-14.5); WBC 8.2 thou/uL (4.0-11.0)
[2020-08-05 04:45] LABS: CALCIUM 8.4 mg/dL (8.5-10.1); CREATININE 1.2 mg/dL (0.6-1.3); MAGNESIUM 2.4 mg/dL (1.8-2.4); POTASSIUM 3.6 mmol/L (3.5-5.1)
[2020-08-05 12:05] LABS: BE -2.1 mmol/L (-2 to +3); PCO2 39.9 mmHg (35.0-45.0); PO2 92.3 mmHg (75.0-100.0); pH 7.376 (7.340-7.450)
[2020-08-06] VITALS (13 sets, daily range): BP systolic 110–149; BP diastolic 40–87
[2020-08-06 04:52] LABS: ABSOLUTE BASOPHILS 0.1 thou/uL (0.0-0.2); ABSOLUTE EOSINOPHILS 0.5 thou/uL (0.0-0.7); ABSOLUTE LYMPHOCYTES 0.9 thou/uL (0.8-5.3); ABSOLUTE MONOCYTES 0.8 thou/uL (0.0-1.2); BASOPHILS 0.4 %; EOSINOPHILS 3.5 %; HEMATOCRIT 34.4 % (37.0-47.0); HEMOGLOBIN 11.2 gm/dL (12.0-15.0); LYMPHOCYTES 6.8 %; MCH 32.3 pg (26.0-34.0); MCHC 32.7 g/dL (28.0-37.0); MCV 98.7 fL (80.0-100.0); MPV 9.2 fl. (7.2-11.1); NUCLEATED RBCS 0 /100WBC; PLATELET COUNT* 124 thou/uL (150-400); POLYS 83.3 %; RBC 3.48 mil/uL (4.20-5.00); RDW-CV 13.9 % (10.5-14.5); WBC 13.2 thou/uL (4.0-11.0)
[2020-08-06 05:01] LABS: CALCIUM 8.2 mg/dL (8.5-10.1); MAGNESIUM 2.3 mg/dL (1.8-2.4); POTASSIUM 3.3 mmol/L (3.5-5.1)
[2020-08-06 05:06] LABS: PHOSPHORUS* 2.6 mg/dL (2.5-4.9)
--- NOTE | 2020-08-06 14:09 | EKG ---
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 : 1950 Requested By: Blane Ceja Order Number: [id number] Lashae MD: Roshan De [place] O Measurements Intervals [place] Rate: 61 P: 15 ID: 192 QRS: 12 QRSD: 101 T: 58 QT: 409 QTc: 412 Interpretive Statements Sinus rhythm Low voltage, extremity leads Delayed R wave progression Compared to ECG 08/02/2020 12:04:38 Intraventricular conduction delay no longer present Electronically Signed On 08-06-2020 14:09:34 CDT by Roshan De La O [email or web address] <ELECTRONICALLY SIGNED> By: Roshan De [place] O MD, FACC 08/06/20 1409 1810 1810 Roshan De [place] O MD, FAC /EPI
--- NOTE | 2020-08-06 14:11 | EKG ---
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 : 1950 Requested By: Yani Lopes Order Number: [id number] Reading MD: Roshan De [place] O Measurements Intervals [place] Rate: 56 P: 31 MO: 199 QRS: -10 QRSD: 103 T: 83 QT: 415 QTc: 401 Interpretive Statements Sinus rhythm Low voltage, extremity leads Delayed R wave progression Compared to ECG 08/03/2020 18:10:17 No significant changes Electronically Signed On 08-06-2020 14:11:13 CDT by Roshan De La O [email or web address] <ELECTRONICALLY SIGNED> By: Roshan De [place] O MD, FACC 08/06/20 1411 1011 1011 Roshan De [place] O MD, [facility] /EPI
[2020-08-07 12:00] VITALS: BP 130/54
[2020-08-07 13:12] VITALS: BP 110/48
[2020-08-07 15:38] LABS: CALCIUM 8.7 mg/dL (8.5-10.1); CREATININE 0.9 mg/dL (0.6-1.3); MAGNESIUM 2.3 mg/dL (1.8-2.4); POTASSIUM 3.5 mmol/L (3.5-5.1)
[2020-08-07 16:00] VITALS: BP 119/44
[2020-08-07 20:15] VITALS: BP 134/76
[2020-08-08] VITALS (7 sets, daily range): BP systolic 99–139; BP diastolic 40–57
[2020-08-08 04:34] LABS: ABSOLUTE EOSINOPHILS 0.7 thou/uL (0.0-0.7); ABSOLUTE LYMPHOCYTES 1.1 thou/uL (0.8-5.3); ABSOLUTE MONOCYTES 0.8 thou/uL (0.0-1.2); ABSOLUTE NEUTROPHILS 6.6 thou/uL (1.6-8.1); BASOPHILS 0.4 %; HEMATOCRIT 29.6 % (37.0-47.0); HEMOGLOBIN 9.8 gm/dL (12.0-15.0); LYMPHOCYTES 11.7 %; MCH 32.7 pg (26.0-34.0); MCV 98.9 fL (80.0-100.0); MONOCYTES 8.6 %; MPV 10.3 fl. (7.2-11.1); NUCLEATED RBCS 0 /100WBC; PLATELET COUNT* 130 thou/uL (150-400); POLYS 71.3 %; RDW-CV 13.4 % (10.5-14.5); WBC 9.3 thou/uL (4.0-11.0)
[2020-08-08 04:44] LABS: CALCIUM 9.1 mg/dL (8.5-10.1); CREATININE 0.9 mg/dL (0.6-1.3); MAGNESIUM 2.3 mg/dL (1.8-2.4); POTASSIUM 3.4 mmol/L (3.5-5.1)
[2020-08-09 03:51] VITALS: BP 118/50
[2020-08-09 12:00] VITALS: BP 118/52
[2020-08-09 16:19] VITALS: BP 157/67
[2020-08-09 20:00] VITALS: BP 125/57
[2020-08-09 23:46] VITALS: BP 102/55
[2020-08-10 03:40] VITALS: BP 114/42
[2020-08-10 05:56] LABS: ABSOLUTE EOSINOPHILS 0.6 thou/uL (0.0-0.7); ABSOLUTE LYMPHOCYTES 1.6 thou/uL (0.8-5.3); ABSOLUTE MONOCYTES 0.8 thou/uL (0.0-1.2); ABSOLUTE NEUTROPHILS 6.4 thou/uL (1.6-8.1); BASOPHILS 0.4 %; EOSINOPHILS 6.1 %; HEMATOCRIT 30.7 % (37.0-47.0); HEMOGLOBIN 10.2 gm/dL (12.0-15.0); LYMPHOCYTES 16.8 %; MCH 32.5 pg (26.0-34.0); MCHC 33.1 g/dL (28.0-37.0); MCV 98.1 fL (80.0-100.0); MONOCYTES 8.4 %; MPV 9.5 fl. (7.2-11.1); NUCLEATED RBCS 0 /100WBC; PLATELET COUNT* 198 thou/uL (150-400); POLYS 68.3 %; RBC 3.13 mil/uL (4.20-5.00); RDW-CV 13.8 % (10.5-14.5); WBC 9.3 thou/uL (4.0-11.0)
[2020-08-10 06:04] LABS: CALCIUM 8.6 mg/dL (8.5-10.1); CREATININE 0.9 mg/dL (0.6-1.3); POTASSIUM 3.9 mmol/L (3.5-5.1)
[2020-08-10 08:00] VITALS: BP 128/54
[2020-08-10] MEDS ORDERED: BAYER CHEWABLE81 MG PO (10:59)
[2020-08-10] MEDS ORDERED: CARVEDILOL25 MG PO (10:59)
[2020-08-10] MEDS ORDERED: LEVOFLOXACIN750 MG PO (10:59)
[2020-08-10] MEDS ORDERED: SPIRONOLACTONE25 MG PERTUBE (10:59)
[2020-08-10 16:00] VITALS: BP 96/38
[2020-08-11] VITALS: BP 109/52
[2020-08-11 03:41] VITALS: BP 126/47
[2020-08-11 08:00] VITALS: BP 121/51
[2020-08-11 12:00] VITALS: BP 125/72
[2020-08-11 18:15] VITALS: BP 141/59
[2020-08-11 20:00] VITALS: BP 137/54
[2020-08-12 00:57] VITALS: BP 102/38
[2020-08-12 04:47] VITALS: BP 123/45
[2020-08-12 05:54] LABS: ABSOLUTE EOSINOPHILS 0.6 thou/uL (0.0-0.7); ABSOLUTE LYMPHOCYTES 1.6 thou/uL (0.8-5.3); ABSOLUTE MONOCYTES 0.8 thou/uL (0.0-1.2); BASOPHILS 0.4 %; EOSINOPHILS 5.3 %; HEMATOCRIT 30.3 % (37.0-47.0); HEMOGLOBIN 10.1 gm/dL (12.0-15.0); LYMPHOCYTES 14.6 %; MCH 32.7 pg (26.0-34.0); MCHC 33.3 g/dL (28.0-37.0); MCV 98.3 fL (80.0-100.0); MONOCYTES 6.8 %; MPV 8.6 fl. (7.2-11.1); NUCLEATED RBCS 0 /100WBC; PLATELET COUNT* 306 thou/uL (150-400); POLYS 72.9 %; RBC 3.08 mil/uL (4.20-5.00)
[2020-08-12 05:58] LABS: MAGNESIUM 2.2 mg/dL (1.8-2.4); POTASSIUM 4.5 mmol/L (3.5-5.1)
[2020-08-12 08:14] VITALS: BP 119/74
[2020-08-12 14:58] VITALS: BP 135/60
[2020-08-12 18:03] VITALS: BP 142/57
[2020-08-12 23:49] VITALS: BP 107/40
[2020-08-13 04:41] VITALS: BP 109/41
[2020-08-13 08:55] VITALS: BP 113/47
[2020-08-13 11:38] VITALS: BP 126/50
[2020-08-13] MEDS ORDERED: ELIQUIS5 MG PO (12:00)
[2020-08-13] MEDS ORDERED: LEVOFLOXACIN750 MG PO (12:01)
== END 2020-08-13 15:30 | DRG 246 ==
LOC: M.CL 07:29 → M.2W 09:44 → M.ICU 09:44 → M.2W 08-06 09:08
PROVIDERS: Internal Medicine; Internal Medicine Cardiovascular Disease; Internal Medicine Critical Care Medicine; ADMIT Internal Medicine; ATTEND Internal Medicine
PROC: 5A1955Z Respiratory Ventilation, Greater than 96 Consecutive Hours (ICD-10-PCS; principal; 2020-07-31)
PROC: 0BH17EZ Insertion of Endotracheal Airway into Trachea, Via Natural or Artificial Opening (ICD-10-PCS; principal; 2020-07-31)
PROC: 02HV33Z Insertion of Infusion Device into Superior Vena Cava, Percutaneous Approach (ICD-10-PCS; principal; 2020-07-31)
PROC: B548ZZA Ultrasonography of Superior Vena Cava, Guidance (ICD-10-PCS; principal; 2020-07-31)
PROC: B2151ZZ Fluoroscopy of Left Heart using Low Osmolar Contrast (ICD-10-PCS; 2020-08-02)
PROC: 027034Z Dilation of Coronary Artery, One Artery with Drug-eluting Intraluminal Device, Percutaneous Approach (ICD-10-PCS; 2020-08-02)
PROC: 4A023N7 Measurement of Cardiac Sampling and Pressure, Left Heart, Percutaneous Approach (ICD-10-PCS; 2020-08-02)
PROC: B2111ZZ Fluoroscopy of Multiple Coronary Arteries using Low Osmolar Contrast (ICD-10-PCS; 2020-08-02)
PROC: 5A09357 Assistance with Respiratory Ventilation, Less than 24 Consecutive Hours, Continuous Positive Airway Pressure (ICD-10-PCS; 2020-08-06)
PROC: 5A09357 Assistance with Respiratory Ventilation, Less than 24 Consecutive Hours, Continuous Positive Airway Pressure (ICD-10-PCS; 2020-08-08)
PROC: 5A0935A Assistance with Respiratory Ventilation, Less than 24 Consecutive Hours, High Flow/Velocity Cannula (ICD-10-PCS; 2020-08-09)
DX: I21.4 Non-ST elevation (NSTEMI) myocardial infarction (principal); J96.01 Acute respiratory failure with hypoxia; J69.0 Pneumonitis due to inhalation of food and vomit; R57.0 Cardiogenic shock; I50.43 Acute on chronic combined systolic (congestive) and diastolic (congestive) heart failure; I13.0 Hypertensive heart and chronic kidney disease with heart failure and stage 1 through stage 4 chronic kidney disease, or unspecified chronic kidney disease; Z68.41 Body mass index [BMI] 40.0-44.9, adult; T82.855A Stenosis of coronary artery stent, initial encounter; I25.10 Atherosclerotic heart disease of native coronary artery without angina pectoris; I25.5 Ischemic cardiomyopathy; G47.33 Obstructive sleep apnea (adult) (pediatric); E78.5 Hyperlipidemia, unspecified; I35.0 Nonrheumatic aortic (valve) stenosis; N18.9 Chronic kidney disease, unspecified; E66.9 Obesity, unspecified; E11.22 Type 2 diabetes mellitus with diabetic chronic kidney disease; Y83.8 Other surgical procedures as the cause of abnormal reaction of the patient, or of later complication, without mention of misadventure at the time of the procedure; R04.0 Epistaxis; Z20.822 Contact with and (suspected) exposure to COVID-19; Z88.8 Allergy status to other drugs, medicaments and biological substances; Z95.5 Presence of coronary angioplasty implant and graft; Y92.89 Other specified places as the place of occurrence of the external cause